=== PATIENT | male | born 1990 | race Two or more races ===

== ENCOUNTER 2024-05-17 07:22 | Emergency (ER) | payer MEDICAID, SELFPAY ==
[2024-05-17 07:27] VITALS: BP 148/88; PULSE 93; RESP 18; TEMP 36.7; O2SAT 98; BMI 39.5
--- NOTE | 2024-05-17 07:36 | PD.EDRME ---
Rapid Medical Screening Exam RME Arrival date/time: 05/17/24 07:22 34 yo m with c/o of rectal pain/swelling for 5 days I have greeted and performed a focused initial assessment of this patient. A comprehensive ED assessment and evaluation of the patient, analysis of all test results, and completion of the medical decision making process will be conducted by additional ED providers. Chief Complaint: Skin/Abscess/Foreign Body Time Seen by Provider: 05/17/24 07:26 Vital signs: Vital Signs Temperature 98.1 F 05/17/24 07:27 Pulse Rate 93 05/17/24 07:27 Respiratory Rate 18 05/17/24 07:27 Blood Pressure 148/88 H 05/17/24 07:27 Pulse Oximetry (%) 98 05/17/24 07:27 Oxygen Delivery Method Room Air 05/17/24 07:27
[2024-05-17 08:07] VITALS: BP 137/89; PULSE 85; RESP 18; TEMP 36.9; O2SAT 95
[2024-05-17 09:00] LABS: Basophils # (Auto) 0.1 Thou/mm3 (0.0-0.2); Basophils % (Auto) 1 % (0-2.5); Eosinophils # (Auto) 0.2 Thou/mm3 (0.0-0.5); Eosinophils % (Auto) 2 % (0-10); Hematocrit 39.9 % (41.0-53.0); Immature Granulocytes % (Auto) 0 % (0-0); Immature Granulocytes Auto 0.02 Thou/mm3 (0.00-0.00); Lymphocytes # (Auto) 1.9 Thou/mm3 (1.0-4.8); Lymphocytes % (Auto) 17 % (10-50); Mean Corpuscular HGB Conc 35.1 g/dl (31.0-37.0); Mean Corpuscular Volume 88 fL (80-100); Monocytes # (Auto) 1.1 Thou/mm3 (0.0-0.8); Monocytes % (Auto) 10 % (0-12); Neutrophils # (Auto) 7.7 Thou/mm3 (1.8-7.7); Neutrophils % (Auto) 70 % (37-80); Nucleated Red Blood Cell % 0 /100 WBC (0); Platelet Count 270 Thou/mm3 (140-440); RDW Standard Deviation 42.1 fL (35.1-43.9); Red Blood Count 4.52 Miln/mm3 (4.50-5.90)
[2024-05-17 09:12] LABS: Alanine Aminotransferase 32 U/L (10-49); Albumin, Serum 4.4 gm/dL (3.5-5.0); Albumin/Globulin Ratio 1.6 (1.2-2.2); Alkaline Phosphatase 101 U/L (46-116); Anion Gap 8 (7-16); Aspartate Amino Transferase 30 U/L (0-34); BUN/Creatinine Ratio 21 Ratio (12-20); Bilirubin,Total 0.8 mg/dL (0.3-1.2); Blood Urea Nitrogen 15 mg/dL (9-23); Calcium 9.2 mg/dL (8.3-10.6); Calcium (Corrected) 9.2 mg/dL (8.5-10.1); Carbon Dioxide 28.2 mMol/L (20.0-31.0); Chloride 104 mMol/L (98-107); Creatinine (Component) 0.7 mg/dL (0.6-1.3); Estimated Creatinine Clearance 172.4 mL/min (>60); Globulin 2.8 gm/dL (2.3-3.5); Glucose 106 mg/dL (74-106); Osmolality,Calculated 280 (275-295); Sodium 140 mMol/L (136-145); Total Protein 7.2 gm/dL (5.7-8.2); eGFR > 60 See Note
[2024-05-17 09:34] VITALS: BP 130/87; PULSE 77; RESP 16; TEMP 36.8; O2SAT 100
--- NOTE | 2024-05-17 10:11 | PD.EDSKIN ---
ED Skin Abcess FB-RME/HPI General Chief complaint: Skin/Abscess/Foreign Body Stated complaint: INGROWN HAIR ON BUTT Time Seen by Provider: 05/17/24 07:26 Arrival date/time: 05/17/24 07:22 RME / HPI RME / HPI narrative: DR. ROSE BHATIA ED EVALUATION: 34 year old male with no past medical history presents to the Emergency Department with complaint of rectal pain with associated swelling onset 5 days. Symptoms are moderate. Denies any fevers, chills, or other symptoms at this time. Related Data Previous Rx's ?Medication ?Instructions ?Recorded sulfamethoxazole 800 2 tab PO BID #20 tabs 05/17/24 mg-trimethoprim 160 mg tablet (Bactrim DS) Allergies Allergy/AdvReac Type Severity Reaction Status Date / Time No Known Allergies Allergy Verified 05/17/24 07:24 Review of Systems Review of Systems Systems Reviewed: All systems reviewed, normal except as documented Narrative Review of Systems: GEN: No fever, no chills, no weight loss EYES: No discharge, no visual changes, no pain HEENT: No ear pain, no congestion, no sore throat PULM: No shortness of breath, no cough, no congestion CV: No chest pain, no dyspnea on exertion, no palpitations GI: No nausea, no vomiting, no diarrhea, no pain, no constipation : No frequency, no urgency and no dysuria MUSC/SKEL: No joint pain, no back pain SKIN: No rash. + rectal pain with associated swelling PSYCH: No hallucinations, no depression HEME/LYMPH: No easy bleeding or bruising tendencies NEURO: No weakness, no headache Past Medical History Social History SMOKING STATUS: Never smoker SUBSTANCE USE: does not use ALCOHOL: Never ED Exam Narrative Physical exam: GENERAL APPEARANCE: AxOx4, generally well-appearing, no acute distress, elevated BMI HEENT: NC, AT. MMM. EOMI, clear conjunctiva, oropharynx clear. NECK: Supple without lymphadenopathy. No stiffness or restricted ROM. HEART: Normal rate and regular rhythm, normal S1/S1, no m/r/g LUNGS: CTAB, moving air well. No crackles or wheezes are heard. ABDOMEN: Soft, nontender, nondistended with good bowel sounds heard. BACK: No midline C/T/L spine pain or deformity, No CVAT, no obvious deformity. EXTREMITIES: Without cyanosis, clubbing or edema.\ RECTAL: 10 to 11 o'clock soft fullness area, not firm or hard, but it is tender to palpation MUSCULOSKELETAL: FROM of all major joints, no chest tenderness NEUROLOGICAL: Grossly nonfocal. Alert and oriented, moving all 4 extremities. CN not formally tested but appear grossly intact. Observed to ambulate with normal gait. Skin: Warm and dry without any rash. Course Quality Measures none Orders Category Date Time Status CT Screening NOW Care 05/17/24 07:37 Completed IV [Insert IV] STAT Care 05/17/24 07:37 Completed Blood Culture (Lab) Stat Lab 05/17/24 08:30 Received CBC Stat Lab 05/17/24 08:50 Completed CMP [Comprehensive Metabolic Panel] Stat Lab 05/17/24 08:50 Completed Vital Signs Vital signs: Vital Signs Temperature 98.1 F 05/17/24 07:27 Pulse Rate 93 05/17/24 07:27 Respiratory Rate 18 05/17/24 07:27 Blood Pressure 148/88 H 05/17/24 07:27 Pulse Oximetry (%) 98 05/17/24 07:27 Oxygen Delivery Method Room Air 05/17/24 07:27 Skin / Abscess / Foreign Body MDM Narrative MDM Narrative:: IFarida am scribing for and in the presence of Dr. Robles. Patient data External records reviewed:: [facility] previous records (Reviewed last ED visit dated 07/26/17 , discharged with the following: Edema) Clinical information provided by:: patient Social determinants that could affect healthcare access:: none Patient has the following chronic illnesses:: Denies any PMHx, surgeries, daily medications, or known allergies. How is presenting disease/condition affected by chronic disease/condition?: no chronic disease Evaluation data The following diagnostics were reviewed and interpreted by me:: lab results Lab and/or radiology exams considered but not ordered:: Abdomen/pelvis CT, discussed with Dr. Duggan and patient does not need it. Interpretation Summary: See above under MDM narrative. Medications / Prescriptions Medications or Prescriptions considered but not ordered:: none Medication administrations:: none Consultations Consultation(s) initiated? (list below): Yes Consultation #1 (Physician, Specialty, Details): Discussed test HPI, PMHx, lab, radiology results and/or management with Dr. Duggan. Dr. Duggan examined the patient and patient aparicio snot need the abdomen/pelvis CT. Patient had an early perianal abscess. Time: 10:00 Diagnosis Skin/Abscess Differential Diagnosis: abscess of skin or subcutaneous tissue, cellulitis and other (Abscess, perianal) Most likely diagnosis given after review of the tests above:: Abscess, perianal Admission Indicated Admission indicated?: not indicated Admission Request Was there a request for admission?: No Disposition Plan Disposition Plan: Discharge Discharge Attestation Discharge Attestation: The patient and all family members were given an opportunity to ask questions and understood the discharge instructions. Discharge instructions specifically effects, indications for sooner follow up or return to the emergency department, and the expected course of current diagnosis. Patient condition: Stable Discharge Plan Plan Patient Disposition: HOME (Self Care) Prescriptions/Referrals Prescriptions/Med Rec: New sulfamethoxazole-trimethoprim [Bactrim DS] 800-160 mg tablet 2 tab PO BID Qty: 20 0RF Referrals: No Primary/Family,Physician [Primary Care Provider] - In 1 week Problem List Clinical Impression: Abscess, perianal Patient/Caregiver Discharge Instructions Education Materials: ED ABSCESS Dee-Anal Abx only Additional Instructions: Ba?os de asiento tibios george m?michael dos veces al d?a. Vickey un seguimiento con wolff m?dico de atenci?n primaria en 2 a 3 d?as para volver a controlarlo. Ontiveros sido atendido por el cirujano hoy, si es necesario, wolff m?dico de atenci?n primaria lo puede derivar. No dude en regresar al departamento de emergencias antes si los s?ntomas empeoran o si nota alg?n problema nuevo o preocupante. Print Language: Eritrean Stand Alone Forms: Cristina Award Info., Patient Portal Info Letter
== END 2024-05-17 10:57 | disposition home or self-care (01) ==
PROVIDERS: Physician Assistant; Emergency Provider Emergency Medicine
DX: K61.0 Anal abscess (principal)
CPT/HCPCS: 36415; 80053; 85025; 87040; 99283

== ENCOUNTER 2024-05-18 18:18 | Inpatient (IN) | payer MEDICAID, SELFPAY ==
[2024-05-18 18:31] VITALS: BP 145/90; PULSE 109; RESP 18; TEMP 37.6; O2SAT 96; BMI 40.0
--- NOTE | 2024-05-18 18:50 | XR_ITS ---
Examination: CT abdomen with intravenous contrast CT pelvis with intravenous contrast 2-D coronal reconstructions 2-D sagittal reconstructions Date and time of exam:The May 18, 2024 2142 hrs. Indications: Rectal pain today. CTDI: vol (mGy) 15.3 DLP: (mGycm) 922 Technique: Multiple axial sections of the abdomen and pelvis have been obtained. 64 slice high-resolution scanner used. 3 mm axial sections have been obtained, post intravenous injection 60 cc [id number] 2-D sagittal, coronal reconstructions obtained. Low dose protocols were performed. One or more of the following dose reduction techniques were used; automated exposure control, adjustment of the mA and/or KV according to patient size, use of iterative reconstruction technique. Findings: No focal liver or splenic lesions No gallstones No pancreatic or adrenal mass Aorta normal size Normal appendix No bowel obstruction No diverticulitis Urinary bladder intact Normal prostate Left posterior perianal inflammatory change measuring 35 x 18 mm with early abscess Impression: 35 x 18 mm left perianal abscess communicating with the intergluteal fold on the left
--- NOTE | 2024-05-18 18:52 | PD.EDRME ---
Rapid Medical Screening Exam RME Arrival date/time: 05/18/24 18:18 34-year-old male recently discharged yesterday for cellulitis to buttocks presents emergency department complaining of increasing pain and swelling. Chief Complaint: General Adult/Misc Complain Time Seen by Provider: 05/18/24 18:22 Vital signs: Vital Signs Temperature 99.6 F 05/18/24 18:31 Pulse Rate 109 H 05/18/24 18:31 Respiratory Rate 18 05/18/24 18:31 Blood Pressure 145/90 H 05/18/24 18:31 Pulse Oximetry (%) 96 05/18/24 18:31 Oxygen Delivery Method Room Air 05/18/24 18:31 Vital signs reviewed by provider: Yes
[2024-05-18] MEDS: HYDROcodone/APAP 5/325 TABLET 1 TAB PO (18:57)
[2024-05-18 19:22] LABS: Lactate (Lactic Acid) 1.5 mMol/L (0.4-2.0)
[2024-05-18 19:25] LABS: Basophils # (Auto) 0.1 Thou/mm3 (0.0-0.2); Basophils % (Auto) 1 % (0-2.5); Eosinophils # (Auto) 0.5 Thou/mm3 (0.0-0.5); Eosinophils % (Auto) 4 % (0-10); Hematocrit 41.6 % (41.0-53.0); Hemoglobin 14.1 g/dL (13.5-16.0); Immature Granulocytes % (Auto) 0 % (0-0); Immature Granulocytes Auto 0.05 Thou/mm3 (0.00-0.00); Lymphocytes # (Auto) 2.8 Thou/mm3 (1.0-4.8); Lymphocytes % (Auto) 23 % (10-50); Mean Corpuscular HGB Conc 33.9 g/dl (31.0-37.0); Mean Corpuscular Hemoglobin 30.3 pg (25.0-35.0); Mean Corpuscular Volume 90 fL (80-100); Monocytes # (Auto) 1.4 Thou/mm3 (0.0-0.8); Monocytes % (Auto) 12 % (0-12); Neutrophils # (Auto) 7.1 Thou/mm3 (1.8-7.7); Neutrophils % (Auto) 60 % (37-80); Nucleated Red Blood Cell % 0 /100 WBC (0); Platelet Count 278 Thou/mm3 (140-440); RDW Standard Deviation 41.5 fL (35.1-43.9); Red Blood Count 4.65 Miln/mm3 (4.50-5.90); White Blood Count 11.9 Thou/mm3 (3.8-10.6)
[2024-05-18 19:44] LABS: Collection Type, Urine Clean Catch; Squamous Epithelial Cell,Urine 0 /hpf (0-5)
[2024-05-18 19:49] LABS: Bilirubin,Urine Negative (Negative); Blood,Urine Negative (Negative); Clarity,Urine Clear (Clear/Hazy); Color,Urine Lt-Yellow (Lt Yel-Yel); Culture Indicated,Urine Not Indicated; Glucose, Urine Negative (Negative); Ketones,Urine Negative (Negative); Leukocyte Esterase,Urine Negative (Negative); Nitrite,Urine Negative (Negative); PH,Urine 6.5 (5.0-7.0); Protein,Urine Negative (Neg - Trace); RBC,Urine < 1 /hpf (0-3); Specific Gravity,Urine 1.024 (1.001-1.035); Urobilinogen,Urine Negative mg/dL (0.0-1.0); WBC,Urine < 1 /hpf (0-5)
[2024-05-18 19:52] LABS: Alanine Aminotransferase 33 U/L (10-49); Albumin/Globulin Ratio 1.7 (1.2-2.2); Alkaline Phosphatase 124 U/L (46-116); Anion Gap 10 (7-16); Aspartate Amino Transferase 34 U/L (0-34); BUN/Creatinine Ratio 20 Ratio (12-20); Bilirubin,Total 0.3 mg/dL (0.3-1.2); Blood Urea Nitrogen 16 mg/dL (9-23); Calcium 9.6 mg/dL (8.3-10.6); Calcium (Corrected) 9.6 mg/dL (8.5-10.1); Carbon Dioxide 25.4 mMol/L (20.0-31.0); Chloride 103 mMol/L (98-107); Creatinine (Component) 0.8 mg/dL (0.6-1.3); Estimated Creatinine Clearance 151.8 mL/min (>60); Globulin 2.9 gm/dL (2.3-3.5); Glucose 114 mg/dL (74-106); Osmolality,Calculated 277 (275-295); Potassium 3.9 mMol/L (3.4-5.1); Procalcitonin 0.08 ng/ml (0.0-0.49); Sodium 138 mMol/L (136-145); Total Protein 7.9 gm/dL (5.7-8.2); eGFR > 60 See Note
[2024-05-18 19:53] LABS: INR 0.9 (0.9-1.3); Partial Thromboplastin Time 26.8 Seconds (22.0-36.0); Prothrombin Time 10.3 Seconds (9.0-12.2)
[2024-05-18 20:24] VITALS: BP 135/80; PULSE 84; RESP 18; TEMP 36.8; O2SAT 98
--- NOTE | 2024-05-18 22:18 | PD.EDWOUND ---
ED Wound/Laceration-RME/HPI General Chief Complaint: General Adult/Misc Complain Stated Complaint: PIMPLE ON BUTTOCKS FEELS WORSE TODAY Time Seen by Provider: 05/18/24 18:22 Source: patient Arrival date/time: 05/18/24 18:18 34-year-old male recently discharged yesterday for cellulitis to buttocks presents emergency department complaining of increasing pain and swelling. Patient reports was discharged with Bactrim yesterday. Patient denies any fever, chills, vomiting, or rectal bleeding. Mode of arrival: ambulatory Limitations: no limitations RME / HPI RME / HPI narrative: 05/18/24 18:18 34-year-old male recently discharged yesterday for cellulitis to buttocks presents emergency department complaining of increasing pain and swelling. Related Data Previous Rx's ?Medication ?Instructions ?Recorded sulfamethoxazole 800 2 tab PO BID #20 tabs 05/17/24 mg-trimethoprim 160 mg tablet (Bactrim DS) Allergies Allergy/AdvReac Type Severity Reaction Status Date / Time No Known Allergies Allergy Verified 05/18/24 18:23 Review of Systems Review of Systems Systems Reviewed: All systems reviewed, normal except as documented Constitutional Constitutional: Denies body ache(s), Denies chills and Denies fever(s) Eyes Eyes: Denies change in vision ENT Ears, Nose, Mouth, and Throat: Denies disequilibrium, Denies dizziness, Denies sore throat and Denies vertigo Cardiovascular Cardiovascular: Denies chest pain and Denies dyspnea Respiratory Respiratory: Denies chest congestion, Denies cough and Denies dyspnea Gastrointestinal Gastrointestinal: Denies abdominal pain, Denies nausea and Denies vomiting Musculoskeletal Musculoskeletal: Denies abnormal gait and Denies arthralgias Integumentary/Breasts Skin/Breast: Denies erythema, Denies rash and Reports wounds (Wound to buttocks) Neurologic Neurologic: Denies abnormal gait, Denies disequilibrium, Denies dizziness and Denies vertigo Past Medical History Past Medical History NEUROLOGIC: Negative Neurological Disorders CARDIAC: Negative Cardiac Disorders or Congestive Heart Failure RESPIRATORY: Negative Chronic Obstructive Pulmonary Disease (COPD) or Asthma GASTROINTESTINAL: Negative Gastrointestinal Disorders GENITOURINARY: Negative Genitourinary Disorders or Renal Disease MUSCULOSKELETAL: Negative Musculoskeletal Disorders ENDOCRINE: Negative Endocrine Disorders, Diabetes Mellitus Type 1 or Diabetes Mellitus Type 2 HEMATOLOGIC: Negative Blood Disorders or Sickle Cell Disease OTHER HISTORY: Negative Autoimmune Disease, Anesthesia Reactions (no surgical hx) or Cancer Social History SMOKING STATUS: Never smoker SUBSTANCE USE: does not use ED Exam General Limitations: Present no limitations General appearance: Present alert and in no apparent distress Head Head exam: Present atraumatic Eye Eye exam: Present normal appearance, PERRL and EOMI ENT ENT exam: Present normal exam, normal oropharynx and mucous membranes moist Neck Neck exam: Present normal inspection, full ROM and trachea midline Chest Chest inspection: Present normal inspection and symmetric chest wall rise Respiratory Respiratory exam: Present normal lung sounds bilaterally Cardiovascular Cardiovascular exam: Present regular rate, normal rhythm and normal heart sounds Abdominal Exam Abdominal exam: Present soft and normal bowel sounds Extremities Exam Extremities exam: Present normal inspection and full ROM Back Exam Back exam: Present normal inspection and full ROM Back 1 view image:  1. Small area of redness and induration with no obvious drainage to the left buttocks that appears to extend into the rectum. Neurological Exam Neurological exam: Present alert, oriented X3 and CN II-XII intact Psychiatric Psychiatric exam: Present normal affect and normal mood Skin Skin exam: Present warm, dry, intact and normal color Course Quality Measures none Orders Category Date Time Status COVID-19 Screening Questionnaire NOW Care 05/18/24 22:[address] Screening NOW Care 05/18/24 18:51 Active Decision to Admit X1 Care 05/18/24 22:[address] abdomen pelvis w con Stat Exams 05/18/24 18:50 Completed CBC Stat Lab 05/18/24 19:06 Completed CMP [Comprehensive Metabolic Panel] Stat Lab 05/18/24 19:06 Completed Lactic Acid [Lactate (Lactic Acid)] Stat Lab 05/18/24 19:06 Completed PT [Prothrombin Time with INR] Stat Lab 05/18/24 19:06 Completed PTT [Partial Thromboplastin Time] Stat Lab 05/18/24 19:06 Completed Procalcitonin Stat Lab 05/18/24 19:06 Completed Urinalysis, C/S if Indicated Stat Lab 05/18/24 19:23 Completed HYDROcodone*/APAP 5/325 [Braddock 5/325] Med 05/18/24 18:50 Discontinued 1 tab PO X1 ONE Vital Signs Vital signs: Vital Signs Temperature 99.6 F 05/18/24 18:31 Pulse Rate 109 H 05/18/24 18:31 Respiratory Rate 18 05/18/24 18:31 Blood Pressure 145/90 H 05/18/24 18:31 Pulse Oximetry (%) 96 05/18/24 18:31 Oxygen Delivery Method Room Air 05/18/24 18:31 96% room air within normal limits Wound / Laceration MDM Narrative MDM Narrative:: 34-year-old male recently discharged yesterday for cellulitis to buttocks presents emergency department complaining of increasing pain and swelling. Patient reports was discharged with Bactrim yesterday. Patient denies any fever, chills, vomiting, or rectal bleeding. CBC mild leukocytosis 11.9. CMP was unremarkable as well as normal lactic and normal procalcitonin. Blood cultures were obtained. CT abdomen pelvis was ordered due to patient's second visit in 2 days and reports increased pain and swelling. CT abdomen pelvis with con impression as written by radiologist: 35 x 18 mm left perianal abscess communicating with the intergluteal fold on the left. Case discussed with on-call general surgeon Dr. Proctor who agrees to admit patient for possible I&D and IV antibiotics. Patient stable at time of admission. Patient data External records reviewed:: [facility] previous records Clinical information provided by:: patient Social determinants that could affect healthcare access:: none Patient has the following chronic illnesses:: None How is presenting disease/condition affected by chronic disease/condition?: no chronic disease Evaluation data The following diagnostics were reviewed and interpreted by me:: lab results and radiology exam(s) Lab and/or radiology exams considered but not ordered:: Ordered Interpretation Summary: Interpreted by me Medications / Prescriptions Medications or Prescriptions considered but not ordered:: Ordered Medication administrations:: Medication Administration History Discontinued Medications Hydrocodone Bitart/Acetaminophen (Hydrocodone/Apap 5/325 Tablet) 1 tab PO X1 ONE Stop: 05/18/24 18:51 Last Admin: 05/18/24 18:57 Dose: 1 tab Documented By: DB Given Consultations Consultation(s) initiated? (list below): Yes Consultation #1 (Physician, Specialty, Details): Dr. Bartholomew Diagnosis Wound Differential Diagnosis: abscess and other (Perianal abscess, fistula) Most likely diagnosis given after review of the tests above:: Perianal abscess Admission Indicated Admission indicated?: indicated Admission Request Was there a request for admission?: Yes Admission Attestation Admission request attestation: Discussed case with [Dr. Bartholomew] from Hospitalist service regarding admission. Discussed patients ED course, exam findings, labs, and radiology results. The Hospitalist [agrees] to accept the patient for admission. Disposition Plan Disposition Plan: Admit Discharge Plan Plan Patient Disposition: Admit Acute Care w/in Hospital Disposition Comment: Stable Prescriptions/Referrals Prescriptions/Med Rec: No Action sulfamethoxazole-trimethoprim [Bactrim DS] 800-160 mg tablet 2 tab PO BID Qty: 20 0RF Referrals: No Primary/Family,Physician [Primary Care Provider] - In 1 week Problem List Clinical Impression: Abscess, perianal Patient/Caregiver Discharge Instructions Print Language: Malian Stand Alone Forms: Cristina Award Info., Patient Portal Info Letter PA/JIG OPERATOR Supervising Physician PA/JIG OPERATOR Supervising Physician: Dr. Khanna
[2024-05-18 23:51] VITALS: BP 135/84; PULSE 75; RESP 18; TEMP 37.4; O2SAT 97
[2024-05-19] VITALS (10 sets, daily range): BP systolic 114–150; BP diastolic 75–97; PULSE 64–94; RESP 12–18; TEMP 35.9–36.8; O2SAT 95–98
[2024-05-19] MEDS: RINGERS LACTATED 1000 ML 1,000 ML 100 ML IV (01:15)
[2024-05-19] MEDS: ceFAZolin 2 GM in SODIUM CHLORIDE 0.9% 100 ML IV ×2 (01:19→06:17)
--- NOTE | 2024-05-19 05:57 | PC.NURSE ---
Unable to obtain picture of abscess due to cameras on unit not working.
--- NOTE | 2024-05-19 11:56 | PC.SS ---
Patient Loco Eddy is a 34 Year old male admitted for Perianal Abscess. SS met with patient at bedside to complete initial assessment. Patient reports he lives at home with his cousin. Patient reports his friend ,Rivera Jane is his surrogate decision maker [phone]. Patient does not utilize any source of DME to assist with ambulation. Patients pharmacy of choice is [facility]. Patient does not have a PCP. At time of discharge patient will return home. Friend will provide transportation. Next of kin: friend, Rivera Jnae Discharge Plan;Home
--- NOTE | 2024-05-19 12:19 | ESHP_ITS ---
HPI Date of Admission 05/19/24 09:44 Chief Complaint Chief Complaint: Patient is admitted with the complaints of perianal abscess HPI History of present illness revealed that he developed the swelling in the past c ouple of days and he came to the emergency room on the morning of Sunday and was discharged on p.o. antibiotics. With the pain increased in intensity and therefore he came back to the emergency room Sunday evening and was found to have a tender swelling in the perianal region and hence admitted. Patient denies any history of fever or chills he had a similar episode in the past which was not treated with surgery. He denies any other major medical illness like diabetes or hypertension or heart disease. Review of Systems ENT Ears, Nose, Mouth, and Throat: Denies disequilibrium, Denies dizziness and Denies vertigo Musculoskeletal Musculoskeletal: Denies abnormal gait Neurologic Neurologic: Denies abnormal gait, Denies disequilibrium, Denies dizziness and Denies vertigo Past Medical History Past Medical History NEUROLOGIC: Negative Neurological Disorders or Seizures CARDIAC: Negative Cardiac Disorders or Congestive Heart Failure RESPIRATORY: Negative Chronic Obstructive Pulmonary Disease (COPD) or Asthma GASTROINTESTINAL: Negative Gastrointestinal Disorders GENITOURINARY: Negative Genitourinary Disorders or Renal Disease MUSCULOSKELETAL: Negative Musculoskeletal Disorders ENDOCRINE: Negative Endocrine Disorders, Diabetes Mellitus Type 1 or Diabetes Mellitus Type 2 HEMATOLOGIC: Negative Blood Disorders or Sickle Cell Disease OTHER HISTORY: Negative Autoimmune Disease, Blood Transfusions, Anesthesia Reactions or Cancer Social History SMOKING STATUS: Former smoker SUBSTANCE USE: does not use Meds Home Medications and Allergies Allergies Allergy/AdvReac Type Severity Reaction Status Date / Time No Known Allergies Allergy Verified 05/18/24 18:23 Exam Vital Signs Temp Pulse Resp BP Pulse Ox O2 Del Method 97.3 F 78 18 119/77 98 Room Air 05/19/24 08:00 05/19/24 08:00 05/19/24 08:00 05/19/24 08:00 05/19/24 08:00 05/19/24 08:00 Narrative Exam Physical examination revealed an obese 34-year-old male who speaks only Ukrainian. He is about 5 feet 6 inches tall weighing 247 pounds with BMI of 40. His vital signs are normal Routine Respiratory Exam Comments: Good breath sounds on both sides Routine Cardiovascular Exam Comments: Sinus rhythm Routine Rectal Exam Comments: Examination of the rectal area revealed that patient had a perianal abscess on the left side of the buttock which is about 2 to 3 cm in diameter and is tender. It is ruptured this morning and is draining some bloody fluid Results Results: Laboratory Laboratory Narrative: Patient's laboratory work is within normal limits Results: Imaging Imaging narrative: CT scan showed perianal collection of 38 x 18 mm abscess Assessment & Plan Additional Assessment Additional comments: Impression: Perianal abscess, ruptured Plan Plan: Advised patient to undergo drainage of the abscess clearly and then washout and packed the wound. Patient has been on Ancef and then after the surgery he will be able to go Quality Measures Quality Measures none
--- NOTE | 2024-05-19 13:22 | ESOP_ITS ---
Date of Procedure 05/19/24 Pre Op Diagnosis Perianal abscess Post Op Diagnosis Same Procedure Incision and drainage of the perianal abscess Findings Patient was found to have an abscess measuring about 3 to 4 cm on the left side of the anus with cellulitis Procedure Description Of the patient was brought to the operating room was given LMA general anesthesia. Then he was kept in lithotomy position and a folded towel was used to behind the sacrum to lift up the perineum. The area was washed with ChloraPrep solution and draped in a sterile manner. Timeout is performed. Then I used a 15 blade knife and incised the abscess and drained some blood and pus mixed with each other. Then I introduced Lester clamp and opened up the septation s and irrigated the area with saline solution there was fair amount of brisk bleeding which was controlled with cautery and packed the wound with half an inch iodoform dressing was applied with fluff and ABD. Patient tolerated the procedure well Anesthesia other Pathology / specimen None Estimated Blood Loss 30 Surgeon Nicki Bartholomew MD Surgical Staff Operation Date: 05/19/24 12:00 Case Staff ASSISTANT CROSS COUNTRY COACH: Osiel Us RN First Assistant: Silke Blue
--- NOTE | 2024-05-19 13:30 | SUR.PHASEI ---
1330: Pt. AAOx4, vitals stable, breathing unlabored, no complaint of pain or nausea, dressing to perianal area CDI, no active bleed noted, report received from Haris CARTER, Eros CARTER, and Joseph RASHID.
--- NOTE | 2024-05-19 14:00 | SUR.PHASEI ---
1400: Pt. AAOx4, vitals stable, breathing unlabored, no complaint of pain of nausea, dressing to perianal area CDI, no active bleed noted, gave report to floor nurse prior to transfer to room 376.
--- NOTE | 2024-05-19 14:15 | PC.NURSE ---
Received Pt. back on floor after I&D from surgery. Pt. on 1 L NC stating 98%. Pt. is received on [facility] little sleepy and not complaining any pain at this monment
[2024-05-19] MEDS: ceFAZolin/D5W 2 GM IV 2 GM/100 ML BAG IV ×2 (14:18→21:33)
[2024-05-19] MEDS: MORPHINE SULF INJ 10 MG/ML VIAL 5 MG IV (15:28)
--- NOTE | 2024-05-19 22:44 | PC.NURSE ---
Upon saline locking pt after completion of Ancef infusion, pt c/o difficulty swallowing saliva. Denies difficulty with breathing; paged, arrived shortly after. Assessed pt, no wheezing upon auscultation, examined oral airway and no swelling visualized. Pt inquiring with pt, pt reported having experienced similar circumstances in the past d/t cold air. noted he would caution and order pt x1 dose of Benadryl as a precaution.
--- NOTE | 2024-05-19 23:38 | PC.WOUND ---
Upon completion of dressing change and pt ambulating to restroom to have a bowel movement, pt reported no longer having the sore throat from earlier. Continues to deny difficulty breathing or wheezing; will continue to monitor.
[2024-05-20 04:00] VITALS: BP 130/83; PULSE 67; RESP 18; TEMP 36.6; O2SAT 99
[2024-05-20] MEDS: ceFAZolin/D5W 2 GM IV 2 GM/100 ML BAG IV (05:26)
[2024-05-20 07:27] VITALS: BP 136/87; PULSE 75; RESP 18; TEMP 36.6; O2SAT 99
--- NOTE | 2024-05-20 09:50 | PD.SURPROG ---
Documentation for date of: 05/20/24 Subjective Subjective Brief History: History of present illness revealed that he developed the swelling in the past couple of days and he came to the emergency room on the morning of Sunday and was discharged on p.o. antibiotics. With the pain increased in intensity and therefore he came back to the emergency room Sunday evening and was found to have a tender swelling in the perianal region and hence admitted. Patient denies any history of fever or chills he had a similar episode in the past which was not treated with surgery. He denies any other major medical illness like diabetes or hypertension or heart disease. Narrative: The patient is feeling better without much pain Exam Vital Signs Temp Pulse Resp BP Pulse Ox O2 Del Method O2 Flow Rate 97.8 F 75 18 136/87 H 99 Room Air 1 05/20/24 07:27 05/20/24 07:27 05/20/24 07:27 05/20/24 07:27 05/20/24 07:27 05/20/24 07:27 05/19/24 14:00 His vital signs are normal Routine Rectal Exam Comments: The dressing was changed by the nurse Assessment & Plan Assessment Additional comments: Impression: Stable postoperative course Plan Plan discharge patient today on antibiotics and pain medication Procedures Procedures Incision and drainage of the perianal abscess
== END 2024-05-20 11:25 | disposition home or self-care (01) | DRG 226 ==
LOC: SERX 22:26 → S3SX 05-19 07:35 → SERHOLD 05-19 07:56
PROVIDERS: Admitting Provider Surgery; Emergency Provider Emergency Medicine; Visit Provider Surgery
PROC: 0D9Q0ZZ Drainage of Anus, Open Approach (ICD-10-PCS; principal; 2024-05-19 12:00)
DX: K61.0 Anal abscess (principal); Z87.891 Personal history of nicotine dependence
CPT/HCPCS: 36415; 74177; 80053; 81001; 83605; 84145; 85025; 85610; 85730; 87040; 99285; A4217; A4649; G0378; J0689; J0690; J2250; J2270; J2704; J3010; J3490; J7050; J7120; Q9967; A9270